=== PATIENT | male | born 1945 | race Caucasian/White ===

== ENCOUNTER 2023-05-18 13:50 | Inpatient (IN) | payer MEDICARE, BC ==
[2023-05-18 15:01] LABS: #Basophils 0.1 thou/uL (0.0-0.2); #Eosinphils 0.2 thou/uL (0.0-0.7); #Monocytes 0.8 thou/uL (0.11-0.59); #Neutrophils 7.1 thou/uL (1.40-6.50); %Basophils 0.8 % (0.0-1.0); %Eosinophils 2.5 % (0.0-10.0); %Lymphocytes 10.7 % (21.0-51.0); %Monocytes 8.2 % (0.0-10.0); %Neutrophils 77.3 % (42.0-75.0); Hematocrit 38.9 % (42.0-52.0); Hemoglobin 12.9 g/dL (14.0-18.0); Mean Corpuscular HGB CONC 33.2 g/dL (32.0-36.0); Mean Corpuscular Hemoglobin 30.4 pg (27.0-31.0); Mean Corpuscular Volume 91.7 fl (78.0-98.0); Mean Platelet Volume 9.6 fL (7.4-10.4); Platelet Count 269 10x3/uL (130-400); RBC Distribution Width 14.4 % (11.5-14.5); Red Blood Cell (RBC) Count 4.24 mill/uL (4.70-6.10); White Blood Cell (WBC) Count 9.2 10x3/uL (4.8-10.8)
[2023-05-18 15:13] LABS: ALT (SGPT) 18 U/L (8-55); AST (SGOT) 16 U/L (5-34); Albumin 3.7 g/dL (3.4-4.8); Alkaline Phosphatase 153 U/L (40-110); Anion Gap 14 mmol/L (10-20); BUN (Urea Nitrogen) 16 mg/dL (8.4-25.7); Bilirubin, Total 1.2 mg/dL (0.2-1.2); Calc. Creatinine Clearance 0 mL/min (70-130); Carbon Dioxide 22 mmol/L (23-31); Chloride 107 mmol/L (98-107); Estimated GFR 75; Globulin 3.1 g/dL (2.4-3.5); Glucose 110 mg/dL (83-110); Lipase 7 U/L (8-78); Potassium 4.1 mmol/L (3.5-5.1); Protein, Total 6.8 g/dL (5.8-8.1); Sodium 139 mmol/L (136-145)
[2023-05-18 15:32] LABS: Troponin I Less than 0.010 ng/mL (< 0.028)
[2023-05-18] MEDS ORDERED: LORazepam 2 MG/ML SYR.(CARPUJECT) ONE (15:55)
[2023-05-18] MEDS ORDERED: Haloperidol Lactate 5 MG/ML VIAL ONE (16:44)
[2023-05-18 17:44] LABS: Bacteria/HPF None Seen HPF (None Seen); Bilirubin Negative (Negative); Blood, Urine 3+ (Negative); CAUTI Indications for Culture Alt mental st,lethar; Clarity Extra Turbid (Clear); Glucose, Urine (Dipstick) Normal (Negative); Ketone, Urine Negative (Negative); Leukocyte 500 Leu/uL (Negative); Nitrite Negative (Negative); Protein, Urine (Dipstick) 100 mg/dL (Neg-Trace); RBC/HPF Greater than 50 HPF (0-3); Specific Gravity, Urine 1.016 (1.002-1.036); Squamous Epithelial None Seen HPF (0-3); Urobilinogen Normal mg/dL (Less than 2); WBC/HPF Greater than 50 HPF (0-3); pH, Urine 6.5 (5.0-9.0)
[2023-05-18 17:48] LABS: Urine Culture Reflex Yes Yes
[2023-05-18] MEDS ORDERED: Acetaminophen 325 MG TAB PO PRN (19:20)
[2023-05-18] MEDS ORDERED: Loratadine 10 MG TAB PO PRN (19:50)
[2023-05-19] MEDS: Sodium Chloride 0.9% 500 ML IV SCH (00:47)
[2023-05-19] MEDS: Sodium Chloride 0.9% 1,000 ML IV SCH (00:48)
[2023-05-19] MEDS ORDERED: cefTRIAXone (ROCEPHIN) 2 GM VIAL ONE (01:24)
[2023-05-19] MEDS ORDERED: Sodium Chloride 0.9% 100 ML ONE (01:24)
[2023-05-19] MEDS: cefTRIAXone\\ROCEPHIN 2 GM in Sodium Chloride 0.9% 100 ML IVPB SCH (01:28)
[2023-05-19 03:57] LABS: #Basophils 0.1 thou/uL (0.0-0.2); #Eosinphils 0.3 thou/uL (0.0-0.7); #Monocytes 0.8 thou/uL (0.11-0.59); #Neutrophils 5.2 thou/uL (1.40-6.50); %Basophils 0.9 % (0.0-1.0); %Eosinophils 3.7 % (0.0-10.0); %Lymphocytes 19.8 % (21.0-51.0); %Monocytes 9.5 % (0.0-10.0); %Neutrophils 65.8 % (42.0-75.0); Hematocrit 37.9 % (42.0-52.0); Hemoglobin 12.4 g/dL (14.0-18.0); Mean Corpuscular HGB CONC 32.7 g/dL (32.0-36.0); Mean Corpuscular Hemoglobin 30.3 pg (27.0-31.0); Mean Corpuscular Volume 92.7 fl (78.0-98.0); Mean Platelet Volume 9.7 fL (7.4-10.4); Platelet Count 234 10x3/uL (130-400); RBC Distribution Width 14.3 % (11.5-14.5); Red Blood Cell (RBC) Count 4.09 mill/uL (4.70-6.10); White Blood Cell (WBC) Count 7.9 10x3/uL (4.8-10.8)
[2023-05-19 04:26] LABS: ALT (SGPT) 19 U/L (8-55); AST (SGOT) 17 U/L (5-34); Albumin 3.5 g/dL (3.4-4.8); Alkaline Phosphatase 138 U/L (40-110); Anion Gap 12 mmol/L (10-20); BUN (Urea Nitrogen) 13 mg/dL (8.4-25.7); Calc. Creatinine Clearance 0 mL/min (70-130); Calcium 8.8 mg/dL (7.8-10.44); Carbon Dioxide 22 mmol/L (23-31); Chloride 111 mmol/L (98-107); Estimated GFR 89; Globulin 2.9 g/dL (2.4-3.5); Glucose 84 mg/dL (83-110); Protein, Total 6.4 g/dL (5.8-8.1); Sodium 141 mmol/L (136-145)
[2023-05-19] MEDS ORDERED: Loratadine 10 MG TAB PO SCH (09:00)
[2023-05-19] MEDS ORDERED: Enoxaparin 40 MG (0.4 mL) SYRINGE ONE (09:09)
[2023-05-19] MEDS: Enoxaparin 40 MG (0.4 mL) SYRINGE SC SCH (09:21)
[2023-05-19] MEDS: FLUoxetine HCl 20 MG CAP PO SCH (10:45)
[2023-05-21 05:13] LABS: #Basophils 0.1 thou/uL (0.0-0.2); #Eosinphils 0.2 thou/uL (0.0-0.7); #Monocytes 0.9 thou/uL (0.11-0.59); #Neutrophils 6.4 thou/uL (1.40-6.50); %Basophils 0.6 % (0.0-1.0); %Eosinophils 2.2 % (0.0-10.0); %Monocytes 10.6 % (0.0-10.0); Hematocrit 33.9 % (42.0-52.0); Hemoglobin 11.5 g/dL (14.0-18.0); Mean Corpuscular HGB CONC 33.9 g/dL (32.0-36.0); Mean Corpuscular Hemoglobin 30.1 pg (27.0-31.0); Mean Corpuscular Volume 88.7 fl (78.0-98.0); Mean Platelet Volume 9.7 fL (7.4-10.4); Platelet Count 236 10x3/uL (130-400); RBC Distribution Width 13.7 % (11.5-14.5); Red Blood Cell (RBC) Count 3.82 mill/uL (4.70-6.10); White Blood Cell (WBC) Count 8.4 10x3/uL (4.8-10.8)
[2023-05-21 05:36] LABS: Anion Gap 14 mmol/L (10-20); BUN (Urea Nitrogen) 8 mg/dL (8.4-25.7); Calc. Creatinine Clearance 78 mL/min (70-130); Calcium 8.6 mg/dL (7.8-10.44); Carbon Dioxide 19 mmol/L (23-31); Chloride 108 mmol/L (98-107); Estimated GFR 93; Glucose 84 mg/dL (83-110); Potassium 3.3 mmol/L (3.5-5.1); Sodium 138 mmol/L (136-145)
[2023-05-21] MEDS: Potassium Chloride 20 MEQ TAB PO SCH (08:03)
[2023-05-21] MEDS: Acetaminophen 650 MG Suppository PR PRN (21:13)
[2023-05-22 06:24] LABS: #Eosinphils 0.1 thou/uL (0.0-0.7); #Monocytes 0.9 thou/uL (0.11-0.59); #Neutrophils 5.8 thou/uL (1.40-6.50); %Basophils 0.4 % (0.0-1.0); %Eosinophils 1.8 % (0.0-10.0); %Lymphocytes 10.7 % (21.0-51.0); %Monocytes 11.7 % (0.0-10.0); %Neutrophils 74.8 % (42.0-75.0); Hematocrit 28.5 % (42.0-52.0); Hemoglobin 9.9 g/dL (14.0-18.0); Mean Corpuscular HGB CONC 34.7 g/dL (32.0-36.0); Mean Corpuscular Hemoglobin 30.3 pg (27.0-31.0); Mean Corpuscular Volume 87.2 fl (78.0-98.0); Mean Platelet Volume 9.8 fL (7.4-10.4); Platelet Count 226 10x3/uL (130-400); RBC Distribution Width 14.1 % (11.5-14.5); Red Blood Cell (RBC) Count 3.27 mill/uL (4.70-6.10); White Blood Cell (WBC) Count 7.8 10x3/uL (4.8-10.8)
[2023-05-22 06:47] LABS: Anion Gap 11 mmol/L (10-20); BUN (Urea Nitrogen) 7 mg/dL (8.4-25.7); Calc. Creatinine Clearance 83 mL/min (70-130); Calcium 8.1 mg/dL (7.8-10.44); Carbon Dioxide 23 mmol/L (23-31); Chloride 109 mmol/L (98-107); Estimated GFR 96; Glucose 98 mg/dL (83-110); Potassium 2.8 mmol/L (3.5-5.1); Sodium 140 mmol/L (136-145)
[2023-05-22] MEDS: Potassium Chloride 20 MEQ in Premix 1 BAG IVPB SCH (09:37)
[2023-05-23 06:26] LABS: #Eosinphils 0.1 thou/uL (0.0-0.7); #Neutrophils 7.2 thou/uL (1.40-6.50); %Basophils 0.4 % (0.0-1.0); %Eosinophils 0.7 % (0.0-10.0); %Lymphocytes 10.6 % (21.0-51.0); %Monocytes 10.9 % (0.0-10.0); Hematocrit 27.7 % (42.0-52.0); Hemoglobin 9.5 g/dL (14.0-18.0); Mean Corpuscular HGB CONC 34.3 g/dL (32.0-36.0); Mean Corpuscular Hemoglobin 30.1 pg (27.0-31.0); Mean Corpuscular Volume 87.7 fl (78.0-98.0); Mean Platelet Volume 10.1 fL (7.4-10.4); Platelet Count 238 10x3/uL (130-400); RBC Distribution Width 14.3 % (11.5-14.5); Red Blood Cell (RBC) Count 3.16 mill/uL (4.70-6.10); White Blood Cell (WBC) Count 9.4 10x3/uL (4.8-10.8)
[2023-05-23 06:57] LABS: Anion Gap 10 mmol/L (10-20); BUN (Urea Nitrogen) 8 mg/dL (8.4-25.7); Calc. Creatinine Clearance 83 mL/min (70-130); Calcium 7.9 mg/dL (7.8-10.44); Carbon Dioxide 22 mmol/L (23-31); Chloride 109 mmol/L (98-107); Estimated GFR 96; Glucose 103 mg/dL (83-110); Potassium 2.9 mmol/L (3.5-5.1); Sodium 138 mmol/L (136-145)
[2023-05-23] MEDS: Magnesium 2 GM/50 ML(in water) 2 GM in Premix 1 BAG IVPB SCH (09:32)
[2023-05-23] MEDS: methylPREDNISolone Sod Succ/PF 125 MG/2 ML VIAL IVP SCH (10:51)
[2023-05-23] MEDS: Potassium Chloride 20 MEQ in Premix 1 BAG IVPB SCH (10:53)
[2023-05-24 05:53] LABS: #Monocytes 0.6 thou/uL (0.11-0.59); #Neutrophils 7.2 thou/uL (1.40-6.50); %Basophils 0.1 % (0.0-1.0); %Lymphocytes 6.7 % (21.0-51.0); %Neutrophils 85.7 % (42.0-75.0); Hematocrit 28.5 % (42.0-52.0); Hemoglobin 9.8 g/dL (14.0-18.0); Mean Corpuscular HGB CONC 34.4 g/dL (32.0-36.0); Mean Corpuscular Volume 87.2 fl (78.0-98.0); Mean Platelet Volume 10.1 fL (7.4-10.4); Platelet Count 274 10x3/uL (130-400); RBC Distribution Width 14.2 % (11.5-14.5); Red Blood Cell (RBC) Count 3.27 mill/uL (4.70-6.10); White Blood Cell (WBC) Count 8.3 10x3/uL (4.8-10.8)
[2023-05-24 06:19] LABS: Anion Gap 13 mmol/L (10-20); BUN (Urea Nitrogen) 12 mg/dL (8.4-25.7); Calc. Creatinine Clearance 87 mL/min (70-130); Calcium 8.1 mg/dL (7.8-10.44); Carbon Dioxide 20 mmol/L (23-31); Chloride 110 mmol/L (98-107); Estimated GFR 97; Glucose 124 mg/dL (83-110); Magnesium 2.2 mg/dL (1.6-2.6); Potassium 3.6 mmol/L (3.5-5.1); Sodium 139 mmol/L (136-145)
[2023-05-24] MEDS: methylPREDNISolone Sod Succ/PF 125 MG/2 ML VIAL IVP SCH (08:59)
[2023-05-25 07:43] LABS: #Neutrophils 11.7 thou/uL (1.40-6.50); %Basophils 0.1 % (0.0-1.0); %Monocytes 7.1 % (0.0-10.0); %Neutrophils 86.2 % (42.0-75.0); Hematocrit 30.7 % (42.0-52.0); Hemoglobin 10.7 g/dL (14.0-18.0); Mean Corpuscular HGB CONC 34.9 g/dL (32.0-36.0); Mean Corpuscular Hemoglobin 30.4 pg (27.0-31.0); Mean Corpuscular Volume 87.2 fl (78.0-98.0); Mean Platelet Volume 9.6 fL (7.4-10.4); Platelet Count 321 10x3/uL (130-400); RBC Distribution Width 14.4 % (11.5-14.5); Red Blood Cell (RBC) Count 3.52 mill/uL (4.70-6.10); White Blood Cell (WBC) Count 13.6 10x3/uL (4.8-10.8)
[2023-05-25 08:03] LABS: Anion Gap 12 mmol/L (10-20); BUN (Urea Nitrogen) 16 mg/dL (8.4-25.7); Calc. Creatinine Clearance 78 mL/min (70-130); Calcium 8.3 mg/dL (7.8-10.44); Carbon Dioxide 20 mmol/L (23-31); Chloride 111 mmol/L (98-107); Estimated GFR 94; Glucose 108 mg/dL (83-110); Potassium 3.4 mmol/L (3.5-5.1); Sodium 140 mmol/L (136-145)
[2023-05-25 12:40] VITALS: BMI 19.3
[2023-05-26 13:56] VITALS: BP 157/75; TEMP 97.7
== END 2023-05-26 14:41 | disposition home health service (06) | DRG 698 ==
LOC: ERS 13:50 → SUATTDRO 13:50 → ERHOLD 18:52 → 2NO 05-19 10:11 → T4-B 05-21 12:52
PROVIDERS: ADMIT Family Medicine; ATTEND Internal Medicine
DX: T83.511A Infection and inflammatory reaction due to indwelling urethral catheter, initial encounter (principal); A41.51 Sepsis due to Escherichia coli [E. coli]; G93.41 Metabolic encephalopathy; N39.0 Urinary tract infection, site not specified; F03.90 Unspecified dementia, unspecified severity, without behavioral disturbance, psychotic disturbance, mood disturbance, and anxiety; I49.5 Sick sinus syndrome; N32.81 Overactive bladder; Z66 Do not resuscitate; Y83.8 Other surgical procedures as the cause of abnormal reaction of the patient, or of later complication, without mention of misadventure at the time of the procedure; I95.9 Hypotension, unspecified; E87.6 Hypokalemia; M17.12 Unilateral primary osteoarthritis, left knee; Z95.0 Presence of cardiac pacemaker; Z98.890 Other specified postprocedural states
CPT/HCPCS: 36415; 36416; 70450; 71045; 80048; 80053; 81001; 82140; 82550; 83690; 83735; 84145; 84443; 84484; 85025; 86140; 87040; 87077; 87086; 87186; 93005; J0696; J1630; J1650; J2060; J2930; J3475; J3480; J3490; J7030; J7050

== ENCOUNTER 2023-06-26 18:21 | Inpatient (IN) | payer MEDICARE, BC ==
[2023-06-26] MEDS ORDERED: Haloperidol Lactate 5 MG/ML VIAL ONE (19:08)
[2023-06-26 20:22] LABS: #Basophils 0.1 thou/uL (0.0-0.2); #Eosinphils 0.1 thou/uL (0.0-0.7); #Monocytes 0.5 thou/uL (0.11-0.59); #Neutrophils 9.5 thou/uL (1.40-6.50); %Basophils 0.5 % (0.0-1.0); %Eosinophils 1.1 % (0.0-10.0); %Lymphocytes 10.8 % (21.0-51.0); %Monocytes 4.7 % (0.0-10.0); %Neutrophils 82.2 % (42.0-75.0); Hematocrit 35.9 % (42.0-52.0); Hemoglobin 11.9 g/dL (14.0-18.0); Mean Corpuscular HGB CONC 33.1 g/dL (32.0-36.0); Mean Corpuscular Volume 90.4 fl (78.0-98.0); Mean Platelet Volume 9.4 fL (7.4-10.4); Platelet Count 289 10x3/uL (130-400); RBC Distribution Width 14.1 % (11.5-14.5); Red Blood Cell (RBC) Count 3.97 mill/uL (4.70-6.10); White Blood Cell (WBC) Count 11.6 10x3/uL (4.8-10.8)
[2023-06-26 20:29] LABS: Bacteria/HPF 2+ HPF (None Seen); Bilirubin Negative (Negative); Blood, Urine 3+ (Negative); CAUTI Indications for Culture Acute Hematuria; Clarity Turbid (Clear); Glucose, Urine (Dipstick) Normal (Negative); Ketone, Urine Negative (Negative); Leukocyte 75 Leu/uL (Negative); Nitrite Negative (Negative); Protein, Urine (Dipstick) 100 mg/dL (Neg-Trace); RBC/HPF 21-50 HPF (0-3); Specific Gravity, Urine 1.009 (1.002-1.036); Squamous Epithelial None Seen HPF (0-3); Urobilinogen Normal mg/dL (Less than 2); WBC/HPF 21-50 HPF (0-3); pH, Urine 6.5 (5.0-9.0)
[2023-06-26 20:31] LABS: Urine Culture Reflex Yes Yes
[2023-06-26 20:42] LABS: ALT (SGPT) 16 U/L (8-55); AST (SGOT) 23 U/L (5-34); Albumin 3.6 g/dL (3.4-4.8); Alkaline Phosphatase 129 U/L (40-110); Anion Gap 16 mmol/L (10-20); BUN (Urea Nitrogen) 16 mg/dL (8.4-25.7); Calc. Creatinine Clearance 0 mL/min (70-130); Calcium 9.1 mg/dL (7.8-10.44); Carbon Dioxide 19 mmol/L (23-31); Chloride 106 mmol/L (98-107); Estimated GFR 83; Globulin 2.8 g/dL (2.4-3.5); Glucose 98 mg/dL (83-110); Potassium 4.1 mmol/L (3.5-5.1); Protein, Total 6.4 g/dL (5.8-8.1); Sodium 137 mmol/L (136-145)
[2023-06-26] MEDS ORDERED: Bisacodyl 5 MG TAB PO PRN (21:18)
[2023-06-26] MEDS ORDERED: Ondansetron PF 4 MG/2 ML Vial IVP PRN (21:23)
[2023-06-26] MEDS ORDERED: Sodium Chloride 0.9% 100 ML ONE (22:02)
[2023-06-26] MEDS ORDERED: cefTRIAXone (ROCEPHIN) 2 GM VIAL ONE (22:02)
[2023-06-26] MEDS ORDERED: Vancomycin 1 GM/200 ML (FROZEN) BAG ONE (22:34)
[2023-06-26 23:36] LABS: Lactic Acid 0.9 mmol/L (0.5-2.2)
[2023-06-27] MEDS: Lactated Ringer's 1,000 ML IV SCH (00:04)
[2023-06-27] MEDS: cefTRIAXone\\ROCEPHIN 2 GM in Sodium Chloride 0.9% 100 ML IVPB SCH (00:05)
[2023-06-27 00:24] VITALS: BMI 19.4
[2023-06-27] MEDS: Polyethylene Glycol 3350 17 GM Packet PO SCH (08:27)
[2023-06-27] MEDS: FLUoxetine HCl 20 MG CAP PO SCH (08:27)
[2023-06-27 10:16] LABS: #Basophils 0.1 thou/uL (0.0-0.2); #Monocytes 0.8 thou/uL (0.11-0.59); #Neutrophils 9.9 thou/uL (1.40-6.50); %Basophils 0.4 % (0.0-1.0); %Eosinophils 0.3 % (0.0-10.0); %Lymphocytes 6.7 % (21.0-51.0); %Monocytes 6.9 % (0.0-10.0); Hematocrit 36.2 % (42.0-52.0); Hemoglobin 11.7 g/dL (14.0-18.0); Mean Corpuscular HGB CONC 32.3 g/dL (32.0-36.0); Mean Corpuscular Hemoglobin 30.2 pg (27.0-31.0); Mean Platelet Volume 9.4 fL (7.4-10.4); Platelet Count 243 10x3/uL (130-400); RBC Distribution Width 14.5 % (11.5-14.5); Red Blood Cell (RBC) Count 3.88 mill/uL (4.70-6.10); White Blood Cell (WBC) Count 11.7 10x3/uL (4.8-10.8)
[2023-06-27 10:18] LABS: Mean Corpuscular Volume 93.3 fl (78.0-98.0)
[2023-06-27 10:31] LABS: Anion Gap 12 mmol/L (10-20); BUN (Urea Nitrogen) 11 mg/dL (8.4-25.7); Calc. Creatinine Clearance 73 mL/min (70-130); Calcium 8.7 mg/dL (7.8-10.44); Carbon Dioxide 22 mmol/L (23-31); Chloride 109 mmol/L (98-107); Estimated GFR 92; Glucose 85 mg/dL (83-110); Potassium 4.1 mmol/L (3.5-5.1); Sodium 139 mmol/L (136-145)
[2023-06-27] MEDS: Acetaminophen 325 MG TAB PO PRN (16:28)
[2023-06-28] MEDS: Acetaminophen 650 MG Suppository PR PRN (04:21)
[2023-06-28] MEDS ORDERED: Enoxaparin 40 MG (0.4 mL) SYRINGE SC SCH (09:00)
[2023-06-28] MEDS: Cefepime 2 GM in Sodium Chloride 0.9% 100 ML IVPB SCH (12:56)
[2023-06-28] MEDS: Famotidine 20 MG TAB PO SCH (12:57)
[2023-06-28] MEDS: Fluconazole 100 MG TAB PO SCH (16:14)
[2023-06-28] MEDS: Lactated Ringer's 1,000 ML IV SCH (17:35)
[2023-06-29] MEDS: Fluconazole 100 MG TAB PO SCH (11:51)
[2023-06-30 04:41] LABS: Hematocrit 40.2 % (42.0-52.0); Hemoglobin 12.6 g/dL (14.0-18.0); Mean Corpuscular HGB CONC 31.3 g/dL (32.0-36.0); Mean Corpuscular Hemoglobin 29.1 pg (27.0-31.0); Mean Corpuscular Volume 92.8 fl (78.0-98.0); Mean Platelet Volume 10.2 fL (7.4-10.4); Platelet Count 220 10x3/uL (130-400); RBC Distribution Width 14.2 % (11.5-14.5); Red Blood Cell (RBC) Count 4.33 mill/uL (4.70-6.10); White Blood Cell (WBC) Count 10.4 10x3/uL (4.8-10.8)
[2023-06-30 06:08] LABS: BUN (Urea Nitrogen) 11 mg/dL (8.4-25.7); Calc. Creatinine Clearance 74 mL/min (70-130); Calcium 8.6 mg/dL (7.8-10.44); Carbon Dioxide 20 mmol/L (23-31); Chloride 109 mmol/L (98-107); Estimated GFR 92; Glucose 87 mg/dL (83-110); Potassium 3.8 mmol/L (3.5-5.1); Sodium 141 mmol/L (136-145)
[2023-06-30 06:32] LABS: Anion Gap 16 mmol/L (10-20)
[2023-06-30 08:31] VITALS: BP 128/79; TEMP 98.1
== END 2023-06-30 13:10 | disposition home health service (06) | DRG 699 ==
LOC: ERS 18:21 → 2NO 21:21 → T4-B 06-29 15:54
PROVIDERS: ADMIT Internal Medicine; ATTEND Internal Medicine
PROC: 0TPB70Z Removal of Drainage Device from Bladder, Via Natural or Artificial Opening (ICD-10-PCS; principal; 2023-06-26)
PROC: 0T9B70Z Drainage of Bladder with Drainage Device, Via Natural or Artificial Opening (ICD-10-PCS; 2023-06-26)
DX: T83.021A Displacement of indwelling urethral catheter, initial encounter (principal); E44.0 Moderate protein-calorie malnutrition; E87.20 Acidosis, unspecified; Z68.1 Body mass index [BMI] 19.9 or less, adult; Y84.6 Urinary catheterization as the cause of abnormal reaction of the patient, or of later complication, without mention of misadventure at the time of the procedure; R31.9 Hematuria, unspecified; Z66 Do not resuscitate; I49.5 Sick sinus syndrome; G30.9 Alzheimer's disease, unspecified; F02.80 Dementia in other diseases classified elsewhere, unspecified severity, without behavioral disturbance, psychotic disturbance, mood disturbance, and anxiety; D63.8 Anemia in other chronic diseases classified elsewhere; Z95.0 Presence of cardiac pacemaker
CPT/HCPCS: 36415; 51702; 80048; 80053; 81001; 83605; 85025; 85027; 87040; 87086; 93005; 96365; 96372; 96375; J0692; J0696; J1630; J3370-JW; J3490; J7120